=== PATIENT | male | born 1980 | race Caucasian/White ===

== ENCOUNTER 2016-08-28 22:04 | Emergency (ER) | payer SELFPAY ==
[2016-08-29] MEDS ORDERED: DIAZEPAM 5 MG TAB ONE (01:16)
[2016-08-29] MEDS ORDERED: KETOROLAC 30 MG/ML VIAL ONE (01:27)
== END 2016-08-29 02:10 | disposition home or self-care (01) ==
LOC: ER 22:04
DX: S16.1XXA Strain of muscle, fascia and tendon at neck level, initial encounter (principal)
CPT/HCPCS: 36415; 72050; 80053; 80307; 81001; 83690; 85025; 96374